=== PATIENT | male | born 1955 | race Two or more races ===

== ENCOUNTER 2023-07-28 16:21 | Emergency (ER) | payer MEDICAID ==
[~2023-07-28] VITALS: Ht 175.3 cm; Wt 58.0 kg
[~2023-07-28 16:21] MED LIST: AMLO5TAB88 PO; BENA10TA74 MT; CLON0.1T PO; FAMO20TA8 PO; HYDR50TA39 PO; LABE100T9 PO
[2023-07-28 16:26] VITALS: O2SAT 97
[2023-07-28 18:29] VITALS: BP 161/66; PULSE 58; RESP 14; TEMP 98.2
== END 2023-07-28 18:15 | disposition home or self-care (01) ==
LOC: ER 16:21
DX: T82.838A Hemorrhage due to vascular prosthetic devices, implants and grafts, initial encounter (principal); I11.0 Hypertensive heart disease with heart failure; I50.9 Heart failure, unspecified; Z99.2 Dependence on renal dialysis; X58.XXXA Exposure to other specified factors, initial encounter
CPT/HCPCS: 99283

== ENCOUNTER 2023-09-06 17:07 | Emergency (ER) | payer MEDICAID ==
[~2023-09-06] VITALS: Ht 170.2 cm; Wt 71.0 kg
[~2023-09-06 17:07] MED LIST changes: +NIFE20CA MT
[2023-09-06 17:23] VITALS: O2SAT 97
[2023-09-06] MEDS: ONDANSETRON HCL 4MG/2ML INJ IV STA (18:55)
[2023-09-06] MEDS: FAMOTIDINE 20MG/2ML VIAL IV STA (18:55)
[2023-09-06 20:11] LABS: HEMATOCRIT. 33.2 % (42.0-52.0); HEMOGLOBIN. 10.8 g/dL (14.0-18.0); MEAN CORPUSCULAR HEMOGLOBIN 28.5 pg (28.0-32.0); MEAN CORPUSCULAR HGB CONC 32.5 g/dL (31.0-37.0); MEAN CORPUSCULAR VOLUME 87.5 fL (80.0-94.0); MEAN PLATELET VOLUME 7.9 fl (7.4-10.4); PLATELET 283 x1000/uL (130-400); RED BLOOD CELL COUNT 3.79 mill/uL (4.7-6.1); RED CELL DISTRIBUTION WIDTH 15.9 % (11.6-14.6); WHITE BLOOD COUNT 11.2 x1000/uL (4.5-11.0)
[2023-09-06 20:18] LABS: DIFFERENTIAL COMMENT 1
[2023-09-06 20:22] LABS: CHLORIDE 104 mEq/L (98-107); POTASSIUM 3.2 mEq/L (3.5-5.1); SODIUM 141 mEq/L (136-145)
[2023-09-06 20:23] LABS: CALCIUM 9.2 mg/dL (8.7-10.4); CARBON DIOXIDE 29 mEq/L (21-32)
[2023-09-06 20:31] LABS: ALANINE AMINOTRANSFERASE 12 IU/L (10-49); ALBUMIN 3.9 g/dL (3.2-4.8); ASPARTATE AMINOTRANSFERASE 20 IU/L (<34); BILIRUBIN DIRECT 0.4 mg/dL (<=3.0); BILIRUBIN TOTAL 0.5 mg/dL (0.1-1.0); GLUCOSE 137 mg/dL (70-105); PROTEIN TOTAL 6.8 g/dL (6.0-8.3); TROPONIN I HIGH SENSITIVITY 27 ng/L (3.0-53); UREA NITROGEN BLOOD 14 mg/dL (9-23)
[2023-09-06 20:39] LABS: CREATININE 3.3 mg/dL (0.6-1.3)
[2023-09-06 20:40] LABS: PLATELET ESTIMATE NORMAL
[2023-09-06] MEDS ORDERED: METR-167 MT (20:45)
[2023-09-06] MEDS ORDERED: ONDA4TAB11 PO (20:45)
[2023-09-06 20:54] VITALS: BP 167/60; PULSE 85; RESP 16; TEMP 97.9
== END 2023-09-06 21:21 | disposition home or self-care (01) ==
LOC: ER 17:07
DX: K80.20 Calculus of gallbladder without cholecystitis without obstruction (principal); K52.9 Noninfective gastroenteritis and colitis, unspecified; N18.6 End stage renal disease; I13.0 Hypertensive heart and chronic kidney disease with heart failure and stage 1 through stage 4 chronic kidney disease, or unspecified chronic kidney disease; Z99.2 Dependence on renal dialysis; Z88.8 Allergy status to other drugs, medicaments and biological substances; Z98.890 Other specified postprocedural states
CPT/HCPCS: 80076; 80048; 82962; 83880; 83690; 85025; 84484; 36415; 74176; 93005; 96374; 96375; 99285; J3490; J2405; Z7610